=== PATIENT | male | born 1940 | race Caucasian/White ===

== ENCOUNTER 2019-03-30 05:48 | Day surgery (SDC) | payer MEDICARE, MEDICAID ==
[~2019-03-30 05:48] MED LIST: CLINDAMYCIN 600 MG/D5W RTU 0 MG/0 ML RTUPB IV ONE; CLINDAMYCIN 600 MG/D5W RTU 600 MG/50 ML RTUPB IV PRN
[2019-03-30] MEDS ORDERED: MIDAZOLAM 2 MG/2 ML INJ ONE (06:24)
[2019-03-30] MEDS ORDERED: FENTANYL CITRATE INJ/PF 100 MCG/2 ML AMPUL ONE ×2 (06:24→09:08)
[2019-03-30] MEDS ORDERED: PROPOFOL INJ 200 MG/20 ML VIAL IV ONE ×2 (06:24→09:04)
[2019-03-30] MEDS ORDERED: LIDOCAINE 0.5% INJ-PF (5 MG/ML) 50 ML SDV ONE (06:28)
[2019-03-30] MEDS ORDERED: CLINDAMYCIN 600 MG/D5W RTU 600 MG/50 ML RTUPB IV ONE (06:30)
[2019-03-30] MEDS ORDERED: BUPIVACAINE HCL 0.5 % INJ/PF 30 ML SDV ONE (07:06)
[2019-03-30] MEDS ORDERED: LIDOCAINE 1% INJ-PF (10 MG/ML) 30 ML SDV ONE ×2 (07:06→07:37)
[2019-03-30] MEDS ORDERED: ONDANSETRON HCL INJ/PF 4 MG/2 ML SDV IV PRN (07:58)
[2019-03-30] MEDS ORDERED: PROMETHAZINE HCL INJ 25 MG/1 ML VIAL IV PRN ×2 (07:58)
[2019-03-30] MEDS ORDERED: MEPERIDINE HCL/PF INJ 25 MG/1 ML DISP.SYRIN IV PRN (07:58)
[2019-03-30] MEDS ORDERED: DIPHENHYDRAMINE HCL 50 MG/ML VIAL IV PRN (07:58)
[2019-03-30] MEDS ORDERED: FENTANYL CITRATE INJ/PF 100 MCG/2 ML AMPUL IV PRN ×3 (07:58)
[2019-03-30] MEDS ORDERED: MORPHINE SULFATE 10 MG/ML INJ IV PRN (07:58)
[2019-03-30] MEDS ORDERED: OXYCODONE-ACETAMINOPHEN 5-325 MG TABLET PO PRN (08:44)
[2019-03-30] MEDS ORDERED: HYDROMORPHONE HCL INJ/PF 2 MG/ML AMPULE IV PRN (08:44)
--- NOTE | 2019-03-30 08:45 | Discharge Summary ---
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 Bam Brown @ [facility] for Surgery to be seen in 10-14 days or as scheduled [place]: [place]: [place]: Ice and elevate Keep splint clean/dry/intact, do not remove. If your fingers become numb please unwrap the Ronnie wrap but leave the splint in place, if the sensation does not return within 30 minutes please return to the emergency department. May begin finger range of motion attempting to make full fist. Please use ibuprofen (Motrin or Advil) 600-800 mg every 8 hours as needed for pain or fever DO NOT TAKE w/ TORADOL may use once TORADOL complete. You may also use acetaminophen (Tylenol) 1000 mg every 4-6 hours as needed for pain or fever. Please be aware that many medications contain acetaminophen, do not exceed a total of 1000 mg of acetaminophen every 6 hours. If ibuprofen and acetaminophen are not sufficient for your pain you may take the Percocet/[place]. Please be aware that the Percocet/[place] does contain Tylenol. Stool softener of choice when on pain medication. USE OF [id number] IBUPROFEN: Ibuprofen (Advil, Nuprin, Medipren, Motrin IB) is a medication for fever and pain control. In addition, it has anti- inflammatory effects which may be beneficial, especially in the treatment of injuries. It's best to take ibuprofen with food. Persons with ulcer disease or allergy to aspirin should notify their physician of this before taking ibuprofen. Ibuprofen can be given every four to six hours, for a total of four doses daily. Age Pain or fever dose Antiinflammatory dose 6-8 yr 200 mg (1 tab) 200 mg (1 tab) 9-11 yr 200 mg (1 tab) 200-400 mg (1-2 tab) 11-14 yr 200-400 mg (1-2 tab) 400 mg (2 tab) 15-adult 400 mg (2 tab) 600 mg (3 tab) ORAL NARCOTIC MEDICATION: You have been given a prescription for pain control. This medication is a narcotic. It's best taken with food, as nausea can result if taken on an empty stomach. Don't operate machinery or drive within six hours of taking this medication. Do not combine this medicine with alcohol, or with any medication which can cause sedation (such as cold tablets or sleeping pills) unless you get permission from the physician. Narcotics tend to cause constipation. If possible, drink plenty of fluids and eat a diet high in fiber and fruits. Please be aware that prescription narcotics also have the potential for abuse. People become addicted to these medications because of the general sense of wellbeing that they induce. This feeling along with a significant reduction in tension, anxiety, and aggression provides a stimulating seductive quality to these drugs. Once your pain is under control, we encourage you to discard your unused narcotics. Prescriptions: Oxycodone HCl/Acetaminophen [Percocet 5-325 mg Tablet] 1 tab PO Q6 PRN #25 tab PRN Reason: Referrals: DIANA SOLORIO FNP [Primary Care Provider] - Discharge Diet: As Tolerated Respiratory Treatments at Home: Deep Breathing/Coughing, Incentive Spirometer Discharge Activity: No Driving, No Lifting Over 10 Pounds, No Lifting/Push/Pulling Report the Following to Your Physician Immediately: Fever over 101 Degrees, Unusual Bleeding, Redness, Swelling, Warmth, Increased Soreness
--- NOTE | 2019-03-30 08:46 | Operative Report ---
Operative Report DATE OF SURGERY: 03/30/19 PREOPERATIVE DIAGNOSIS: Left thumb CMC arthritis POSTOPERATIVE DIAGNOSIS: Same OPERATION: Left thumb CMC arthroplasty with trapezial excision, ligament reconstruction tendon interposition utilizing FCR SURGEON: NICKY DELVALLE ANESTHESIA: GA COMPLICATIONS: None ESTIMATED BLOOD LOSS: Minimal PROCEDURE: Indication for above procedure: 78-year-old male with long-standing history of left thumb CMC arthritis. Attempted conservative measures including bracing, anti-inflammatories and injections which failed to provide long-term relief. Patient's pain limits his functions and activities of daily living. We discussed treatment options going operative versus nonoperative intervention risk and benefits were explained patient verbalized understanding consented for surgical procedure. Procedure In Detail: Patient was seen and evaluated in the preoperative holding area. The LEFT upper extremity was initialized and marked. Patient received 600 mg of clindamycin IV for bacterial prophylaxis. Patient was taken back to the operative room where transferred to the operative table and placed under anesthesia. Once they were adequately anesthetized and a nonsterile tourniquet was placed on the upper extremity. A surgical team debriefing was performed ensuring all instrumentation was available, the surgical procedure was discussed with possible concerns reviewed. Local block was performed with 30 cc of 1% lidocaine without epinephrine. The upper extremity was prepped with chlorhexidine and alcohol and draped in a sterile fashion. A timeout was done identifying correct patient, procedure and extremity everyone in attendance agree with this and verbalized no concerns. The extremity was exsanguinated the tourniquet was inflated to 250 mmHg. A longitudinal skin incision was made in line with the first dorsal compartment. I then meticulously dissected down to the interval of the APL and EPB identifying the superficial radial nerve branches which were retracted. The radial artery was identified and protected throughout the entirety of the case with a [place] elevator. A T-shaped capsulotomy was made at the CMC joint of the thumb. A freer elevator was used to geoff out the CMC joint, fluoroscopy confirmed the thumb cmc joint placement. The capsule was released off of the tr apezium circumferentially. The FCR insertion volarly was protected. Using a rongeur the trapezium was excised as one unit. Any of additional loose bodies and bone fragments were excised. The STT joint was inspected and there was evidence of advanced degeneration of the distal scaphoid and proximal trapezoid and thus the proximal third of the trapezoid was excised. I then turned my attention to harvesting the FCR tendon. The FCR was identified and 2 transverse incisions were made. The entire FCR tendon was harvested. The tendon was retrieved from the CMC joint of the thumb. The base of the thumb metacarpal was rongeured to allow for cancellous tendon healing. I tenolysed the FCR up to its insertion at the second metacarpal. Using a rongeur the 1st metacarpal base osteophytes were removed. Bone tunnels were created with the use of #1 PDS suture in a horizontal mattress fashion while my cataloging assistant held distraction at the thumb CMC joint. Once this was complete, optimal stability of the CMC joint was achieved without evidence of subsidence. I fixated the remaining FCR tendon to the FCR tendon that remained attached the to second metacarpal with 3-0 Vicryl to provide interposition. Fluoroscopy was then obtained which demonstrated good stability of the CMC arthroplasty without evidence of subsidence at rest or with stress. The wound was then copiously irrigated with normal saline. A peripheral vasculature is carefully coagulated with bipolar cautery The capsule was closed with interrupted 3-0 vicryl. Superficial radial nerve was once again inspected and protected during skin closure. Subcutaneous tissue closed with interrupted 4-0 Monocryl suture. Skin was closed with horizontal mattress 4-0 nylon suture. The patient was placed in a thumb spica splint. Sponge counts, instrument counts and needle counts were correct. There was no intraoperative complications patient tolerated procedure well with stable to PACU. Postoperative plan: Patient will continue the splint for 2 weeks. Patient will then be transitioned to a cast for an additional 2 weeks. They will then begin occupational therapy at 4 weeks and will be fitted for a thermoplastic splint at that time.
--- NOTE | 2019-03-30 09:11 | RADIOLOGY REPORT (SQ) ---
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 FLUOROSCOPY TIME: 9 seconds 2 Images saved to PACS TECHNIQUE: Intra-operative images acquired during surgical procedure to evaluate progress. NUMBER OF IMAGES: 2 LIMITATIONS: None. FINDINGS: Limited intraoperative fluoroscopic images obtained to evaluate progress. Please see oper ative report for detailed description of procedure. IMPRESSION: IMAGE(S) OBTAINED DURING PROCEDURE. COMMENT: Quality ID [id number]: Final reports for procedures using fluoroscopy that document radiation exp osure indices, or exposure time and number of fluorographic images (if radiation exposure indices are not available) Please consult full operative report of the attending physician for description of the procedure. TECHNICAL DOCUMENTATION: JOB ID: [id number] [employer]- All Rights Reserved Reading location - IP/workstation name: [email or web address]
--- NOTE | 2019-03-30 09:11 | RADIOLOGY REPORT (SQ) ---
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 FLUOROSCOPY TIME: 9 seconds 2 Images saved to PACS TECHNIQUE: Intra-operative images acquired during surgical procedure to evaluate progress. NUMBER OF IMAGES: 2 LIMITATIONS: None. FINDINGS: Limited intraoperative fluoroscopic images obtained to evaluate progress. Please see oper ative report for detailed description of procedure. IMPRESSION: IMAGE(S) OBTAINED DURING PROCEDURE. COMMENT: Quality ID [id number]: Final reports for procedures using fluoroscopy that document radiation exp osure indices, or exposure time and number of fluorographic images (if radiation exposure indices are not available) Please consult full operative report of the attending physician for description of the procedure. TECHNICAL DOCUMENTATION: JOB ID: [id number] [employer]- All Rights Reserved Reading location - IP/workstation name: [email or web address]
[2019-03-30 12:18] VITALS: BP 112/80
== END 2019-03-30 10:20 | disposition home or self-care (01) ==
LOC: OROUT 05:48
PROVIDERS: ATTEND Orthopaedic Surgery
DX: M18.12 Unilateral primary osteoarthritis of first carpometacarpal joint, left hand (principal); M79.645 Pain in left finger(s); I10 Essential (primary) hypertension; Z95.0 Presence of cardiac pacemaker; I47.1 Supraventricular tachycardia; F12.90 Cannabis use, unspecified, uncomplicated; Z87.891 Personal history of nicotine dependence; Z79.899 Other long term (current) drug therapy; Z88.8 Allergy status to other drugs, medicaments and biological substances; Z88.0 Allergy status to penicillin
CPT/HCPCS: 36415; 84132; 73100; 01830; 26480; 25447; J2250; J3010; J3490 ×2; J2704